=== PATIENT | female | born 1980 | race Two or more races ===

== ENCOUNTER 2017-08-14 09:07 | Outpatient (CLI) | payer OTHER | END 2017-08-14 09:12 | disposition home or self-care (01) | LOC: SONOGRAMA 09:07 → MAMO-SONO 09:15 | DX: Z34.82 Encounter for supervision of other normal pregnancy, second trimester (principal) ==

== ENCOUNTER 2017-12-02 11:56 | Outpatient (CLI) | payer OTHER | END 2017-12-02 12:06 | disposition home or self-care (01) | LOC: SONOGRAMA 11:56 | DX: Z34.03 Encounter for supervision of normal first pregnancy, third trimester (principal) ==

== ENCOUNTER 2017-12-09 16:16 | Inpatient (IN) | payer OTHER ==
[~2017-12-09] VITALS: Ht 177.8 cm; Wt 95.7 kg
[2017-12-31] MEDS ORDERED: SYNTHROID50 MCG PO (11:19)
[2017-12-31] MEDS ORDERED: PRENATAL TABLE1 EACH PO (11:19)
== END 2018-01-02 13:33 | DRG 807 ==
LOC: OB/GYN 12-29 16:15 → LDR 12-31 06:42 → OB/GYN 12-31 21:48
PROC: 10E0XZZ Delivery of Products of Conception, External Approach (ICD-10-PCS; principal; 2017-12-31)
PROC: 4A1HXCZ Monitoring of Products of Conception, Cardiac Rate, External Approach (ICD-10-PCS; 2017-12-31)
PROC: 3E033VJ Introduction of Other Hormone into Peripheral Vein, Percutaneous Approach (ICD-10-PCS; 2017-12-31)
PROC: 0HQ9XZZ Repair Perineum Skin, External Approach (ICD-10-PCS; 2017-12-31)
DX: O70.0 First degree perineal laceration during delivery (principal); Z37.0 Single live birth; Z3A.40 40 weeks gestation of pregnancy

== ENCOUNTER 2022-10-01 07:59 | Outpatient (CLI) | payer OTHER ==
[~2022-10-01 07:59] MED LIST: PRENATAL TABLE1 EACH PO; SYNTHROID50 MCG PO
== END 2022-10-01 08:02 | disposition home or self-care (01) ==
LOC: SONOGRAMA 07:59
PROVIDERS: ATTEND Pathology Anatomic Pathology & Clinical Pathology
DX: D34 Benign neoplasm of thyroid gland (principal); E06.3 Autoimmune thyroiditis